=== PATIENT | male | born 1960 | race Caucasian/White ===

== ENCOUNTER → 2017-04-28 | Day surgery (SDC) | payer MEDICAID ==
[~2017-04-28] MED LIST: Glucagon,Human Recombinant 1 MG Vial IV ONE; LORazepam 2 MG/ML MDV IVPUSH ONE; Midazolam 1 MG/ML 2 ML SDV ONE; Propofol 200 MG/20 ML SDV ONE; Sodium Chloride 0.9% 1,000 ML IV SCH; fentaNYL 100 MCG/2 ML SDV ONE
--- NOTE | 2017-04-28 17:44 | EDM.PDOC ---
ED HPI GENERAL MEDICAL PROBLEM - General Chief Complaint: Gastrointestinal Problem Stated Complaint: MEDICAL VIA [facility]TH Time Seen by Provider: 04/28/17 16:17 Source of Information: Reports: Patient History Limitations: Reports: No Limitations - History of Present Illness INITIAL COMMENTS - FREE TEXT/NARRATIVE: History of present illness: [56-year-old male is presenting complaining of esophageal foreign body. He was eating a chicken shish kebab skewer and is now thinking that he got a piece of chicken or wood door toothpick stuck in his upper esophagus. He comes in complaining of pain difficulty swallowing anytime he tries to swallow water it comes right back up. This occurred about an hour prior to presentation] Review of systems: As per history of present illness and below otherwise all systems reviewed and negative. Past medical history: As per history of present illness and as reviewed below otherwise noncontributory. Surgical history: As per history of present illness and as reviewed below otherwise noncontributory. Social history: No reported history of drug or alcohol abuse. Family history: As per history of present illness and as reviewed below otherwise noncontributory. Physical exam: HEENT: Atraumatic, normocephalic, pupils reactive, negative for conjunctival pallor or scleral icterus, mucous membranes moist, throat clear, neck supple, nontender, trachea midline. Oral examination is not revealing any foreign body using a tongue blade and gagging the patient I wasn't able to see any evidence of a foreign body. Lungs: Clear to auscultation Heart: S1S2, regular, negative for clicks, rubs, or JVD. Abdomen: Soft, nondistended, nontender. Negative for masses or hepatosplenomegaly. Negative for costovertebral tenderness. Extremities: Atraumatic, negative for cords or calf pain. Neurovascular unremarkable. Neuro: Awake, alert, oriented. Exam nonfocal. Diagnostics: [] Therapeutics: [Patient received IV fluids IV glucagon and IV Ativan and although he felt better he still felt a foreign body was present] Impression: [Esophageal foreign body sensation] Plan: [Surgeon avionics mechanic is coming in to see him and more than likely was taken to the endoscopy suite] Definitive disposition and diagnosis as appropriate pending reevaluation and review of above. - Related Data Allergies Allergy/AdvReac Type Severity Reaction Status Date / Time No Known Allergies Allergy Verified 04/28/17 16:10 Home Meds: Home Meds atorvaSTATin [Lipitor] 1 tab PO BEDTIME 04/28/17 [History] Past Medical History Cardiovascular History: Reports: High Cholesterol Musculoskeletal History: Reports: Fracture Neurological History: Reports: Seizure - Past Surgical History Musculoskeletal Surgical History: Reports: Other (See Below) Other Musculoskeletal Surgeries/Procedures:: ankle surgery Social & Family History - Tobacco Use Smoking Status *Q: Never Smoker - Alcohol Use Days Per Week of Alcohol Use: 4 Number of Drinks Per Day: 3 Total Drinks Per Week: 12 - Recreational Drug Use Recreational Drug Use: No ED ROS GENERAL - Review of Systems Review Of Systems: ROS reveals no pertinent complaints other than HPI. ED EXAM, GI/ABD - Physical Exam Exam: See Below Course - Vital Signs Last Recorded V/S: Last Vital Signs Temp 37.6 C 04/28/17 16:09 Pulse 109 H 04/28/17 16:09 Resp 22 H 04/28/17 16:09 BP 123/82 04/28/17 16:09 Pulse Ox 99 04/28/17 16:09 - Orders/Labs/Meds Orders: Active Orders 24 hr Category Date Time Status Sodium Chloride 0.9% [Normal Saline] 1,000 ml Med 04/28/17 16:30 Active IV ASDIRECTED Medication Orders Sodium Chloride (Normal Saline) 1,000 mls @ 150 mls/hr IV ASDIRECTED TANVIR Last Admin: 04/28/17 16:49 Dose: 150 mls/hr Meds: Medications Generic Name Dose Route Start Last Admin Trade Name Freq PRN Reason Stop Dose Admin Sodium Chloride 1,000 mls @ 150 mls/hr 04/28/17 16:30 04/28/17 16:49 Normal Saline IV 150 mls/hr ASDIRECTED TANVIR Administration Discontinued Medications Generic Name Dose Route Start Last Admin Trade Name Freq PRN Reason Stop Dose Admin Glucagon 1 mg 04/28/17 16:24 04/28/17 16:47 Glucagen IV 04/28/17 16:25 1 mg ONETIME ONE Administration Lorazepam 1 mg 04/28/17 16:22 04/28/17 16:49 Ativan IVPUSH 04/28/17 16:23 1 mg ONETIME ONE Administration Departure - Departure Time of Disposition: 17:43 Disposition: Refer to Observation Condition: good Clinical Impression: Esophageal foreign body Qualifiers: Encounter type: initial encounter Qualified Code(s): T18.108A - Unspecified foreign body in esophagus causing other injury, initial encounter - Discharge Information Forms: ED Department Discharge - My Orders Last 24 Hours: My Active Orders 04/28/17 16:30 Sodium Chloride 0.9% [Normal Saline] 1,000 ml IV ASDIRECTED - Assessment/Plan Last 24 Hours: My Active Orders 04/28/17 16:30 Sodium Chloride 0.9% [Normal Saline] 1,000 ml IV ASDIRECTED
[2017-04-28 19:37] VITALS: BP 150/95
--- NOTE | 2017-04-28 23:43 | CONS ---
DATE OF SERVICE: 04/28/2017 REFERRING PHYSICIAN: CONSULTING PHYSICIAN: Mikel Thomas MD REASON FOR CONSULTATION: Dysphagia. HISTORY OF PRESENT ILLNESS: A 56-year-old male who has had a recurrent dysphagia issue. He had this previously, but has not had an EGD. This began approximately 4 hours ago and has pain in his epigastric region. PAST SURGICAL HISTORY: Left ankle surgery. PAST MEDICAL HISTORY: None. SOCIAL HISTORY: He does not smoke. He milks cows. REVIEW OF SYSTEMS: GENERAL: The patient is appropriate for his condition. He is not in distress. HEENT: No symptoms. CARDIOVASCULAR: No history of myocardial infarction. RESPIRATORY: No shortness of breath or history of asthma. GASTROINTESTINAL: As above. GENITOURINARY: No dysuria. NEUROLOGICAL: No symptoms. The remainder of review of systems reviewed and is negative. PHYSICAL EXAMINATION: GENERAL: The patient is appropriate for his condition. HEENT: Pupils are equal. NECK: Supple. LUNGS: Clear. ABDOMEN: No pain with palpation. EXTREMITIES: Full range of motion. Strength 5/5. NEUROLOGICAL: Oriented x3. PSYCH: No gross depression. ASSESSMENT: Dysphagia. PLAN: The patient will be taken to the operating room emergently for removal of foreign body. We discussed risks, benefits, alternatives, limitations including, but not limited to infection, bleeding, and perforation. The patient understands these risks and wished to proceed. Mikel Thomas MD /[id number]
--- NOTE | 2017-04-30 07:50 | OR ---
DATE OF PROCEDURE: 04/28/2017 PROCEDURE: Esophagogastroduodenoscopy. FINDINGS: 1. Foreign food material in the distal esophagus. 2. Duodenal ulcer, mild. 3. Gastritis, mild. PATHOLOGY: Gastric antrum biopsies for gastritis. COMPLICATIONS: None. MAINTENANCE ELECTRICIAN: None. RISKS: Risks, benefits, alternatives, limitations including, but not limited to infection, bleeding, and perforation were explained to the patient, and they wished to proceed. PROCEDURE IN DETAIL: The patient was placed in the left lateral decubitus position. The EGD scope was introduced and advanced through the distal esophagus. Foreign food material was noted in the distal esophagus and this was able to be gently advanced into the stomach. Of note, no blind advancement was ever performed. The scope was then advanced through the stomach and the duodenum. In the 1st part of the duodenum, slightly distal to the bulb, the patient had an ulceration, was not actively bleeding and appeared to be healing. The scope was brought back and retroflexed. No hiatal hernia. The patient had gastritis, which is described as [id number]. No active bleeding. The GE junction was normal but was erythematous consistent with foreign material. The patient tolerated that procedure well. Mikel Thomas MD /[id number]
--- NOTE | 2017-04-30 10:31 | CR ---
Chest 2V HISTORY: No Clinical Info FINDINGS: Heart size within normal limits. Pulmonary vasculature within normal limits. No evidence f or focal consolidation or cardiopulmonary process. No radiopaque foreign body about the expected loc ation of the esophagus. IMPRESSION: No radiographic evidence for acute cardiopulmonary process.
== END ==
LOC: JP.ED 15:56 → JP.SDS 18:08
PROVIDERS: ATTEND Surgery
DX: T18.128A Food in esophagus causing other injury, initial encounter (principal); K29.50 Unspecified chronic gastritis without bleeding; K31.9 Disease of stomach and duodenum, unspecified; Z98.890 Other specified postprocedural states; Z79.899 Other long term (current) drug therapy
CPT/HCPCS: 36415; 43239; 43247; 71020; 80048; 85025; 93005; 96361; 96374; 96375; 99285; J1610; J2060; J2250; J2704; J3010; J7040; 88305

== ENCOUNTER 2018-07-19 12:46 | Emergency (ER) | payer MEDICAID ==
[2018-07-19 13:02] VITALS: BP 145/80
[2018-07-19] MEDS ORDERED: Clindamycin Phosphate 900 MG/6 ML SDV IM ONE (13:20)
[2018-07-19] MEDS ORDERED: metroNIDAZOLE 250 MG Tab PO ONE (13:21)
--- NOTE | 2018-07-19 13:31 | EDM.PDOC ---
ED HPI GENERAL MEDICAL PROBLEM - General Chief Complaint: ENT Problem Stated Complaint: ABCESSED TOOTH, VERY SWOLLEN Time Seen by Provider: 07/19/18 12:50 Source of Information: Reports: Patient, RN Notes Reviewed History Limitations: Reports: No Limitations - History of Present Illness INITIAL COMMENTS - FREE TEXT/NARRATIVE: Bairon presents today for complaints of left lower jaw pain and swelling for 2 to 3 days. He reports it is hard to open his mouth and to eat. He denies fever , chills, nausea, vomiting or other concerns. - Related Data Allergies Allergy/AdvReac Type Severity Reaction Status Date / Time No Known Allergies Allergy Verified 04/28/17 16:10 Home Meds: Home Meds atorvaSTATin [Lipitor] 1 tab PO BEDTIME 04/28/17 [History] Past Medical History HEENT History: Reports: Impaired Vision Cardiovascular History: Reports: High Cholesterol Musculoskeletal History: Reports: Fracture Neurological History: Reports: Seizure - Infectious Disease History Infectious Disease History: Reports: Chicken Pox - Past Surgical History Musculoskeletal Surgical History: Reports: Other (See Below) Other Musculoskeletal Surgeries/Procedures:: ankle surgery Social & Family History - Tobacco Use Smoking Status *Q: Former Smoker Used Tobacco, but Quit: Yes Month/Year Tobacco Last Used: many years ago - Caffeine Use Caffeine Use: Reports: None - Recreational Drug Use Recreational Drug Use: No ED ROS ENT - Review of Systems Review Of Systems: See Below Constitutional: Denies: Fever, Chills, Malaise, Weakness HEENT: Reports: Dental Pain, Other (Facial edema to left face). Denies: Ear Pain, Eye Discharge, Throat Pain, Throat Swelling Respiratory: Reports: No Symptoms Cardiovascular: Reports: No Symptoms Endocrine: Reports: No Symptoms GI/Abdominal: Denies: Nausea, Vomiting Musculoskeletal: Reports: No Symptoms Skin: Reports: Other (Edema to left face). Denies: Erythema, Wound Neurological: Reports: No Symptoms Psychiatric: Reports: No Symptoms Hematologic/Lymphatic: Reports: No Symptoms Immunologic: Reports: No Symptoms ED EXAM, ENT - Physical Exam Exam: See Below Text/Narrative:: Bairon presents today for complaints of dental pain, edema to left lower face/ jaw. HE denies fever, chills, nausea, vomiting or other concerns. Exam Limited By: No Limitations General Appearance: Alert, WD/WN, Mild Distress Eye Exam: Bilateral Eye: EOMI, Normal Inspection, PERRL Ears: Normal External Exam, Normal Canal, Hearing Grossly Normal, Normal TMs Nose: Normal Inspection, Normal Mucousa, No Blood Mouth/Throat: Normal Lips, Dental Abcess, Dental Tenderness, Gum Swelling, Other (edema to left lower gum, left cheek. No erythema. Extensive dental caries, many missing teeth, many fractured teeth. Edema and tenderness to #23 -# 19 teeth. ). No: Lip Swelling, Muffled Voice, Oral Ulcers, Tongue Swelling, Tonsillar Erythema, Tonsillar Exudates, Tonsillar Swelling, Uvular Deviation, Uvular Edema Head: Atraumatic, Normocephalic Neck: Normal Inspection, Supple, Non-Tender, Full Range of Motion, Lymphadenopathy (L). No: Lymphadenopathy (R) Respiratory/Chest: No Respiratory Distress, Lungs Clear, Normal Breath Sounds, No Accessory Muscle Use, Chest Non-Tender Cardiovascular: Normal Peripheral Pulses, Regular Rate, Rhythm, No Murmur, No Rub Back: Normal Inspection, Full Range of Motion. No: CVA Tenderness (R), CVA Tenderness (L) Extremities: Normal Inspection, Normal Range of Motion, Non-Tender, No Pedal Edema, Normal Capillary Refill Neurological: Alert, Oriented, CN II-XII Intact, Normal Cognition, Normal Gait, Normal Reflexes, No Motor/Sensory Deficits Psychiatric: Normal Affect, Normal Mood Skin: Dry, Increased Warmth, Other (increased warmth over left cheek. ). No: Erythema Lymphatic: No Adenopathy Course - Vital Signs Last Recorded V/S: Last Vital Signs Temp 36.8 C 07/19/18 13:03 Pulse 86 07/19/18 13:03 Resp 16 07/19/18 13:03 BP 145/80 H 07/19/18 13:03 Pulse Ox 97 07/19/18 13:03 - Orders/Labs/Meds Meds: Medications Discontinued Medications Generic Name Dose Route Start Last Admin Trade Name Freq PRN Reason Stop Dose Admin Clindamycin Phosphate 900 mg 07/19/18 13:20 07/19/18 13:45 Cleocin IM 07/19/18 13:21 900 mg ONETIME ONE Administration Metronidazole 500 mg 07/19/18 13:21 07/19/18 13:28 Metronidazole PO 07/19/18 13:22 500 mg ONETIME ONE Administration Departure - Departure Time of Disposition: 13:32 Disposition: Home, Self-Care 01 Condition: Good Clinical Impression: Dental abscess - Discharge Information *PRESCRIPTION DRUG MONITORING PROGRAM REVIEWED*: No *COPY OF PRESCRIPTION DRUG MONITORING REPORT IN PATIENT THEO: No Instructions: Dental Abscess, [id number] Referrals: PCP,None [Primary Care Provider] - Forms: ED Department Discharge Additional Instructions: You have been evaluated and treated for left lower dental abscess. You were given clindamycin 900mg IM and metronidazole 500mg PO in the emergency room which are both antibiotics. You will continue clindamycin 300mg by mouth four times a day for 10 days and metronidazole 500mg by mouth three times a day for 7 days for infection. You can take ibuprofen and acetaminophen as needed for pain. Follow up with your dentist as soon as possible for dental extractions/dental care. Return to the emergency department for worsening, fever, chills, increased difficulty or concerns. You were offered a dental referral to [facility] and declined. If you change your mind, let us know. - Assessment/Plan Assessment:: Dental abscess Plan: Patient evaluated and treated for left lower dental abscess. He was given clindamycin 900mg IM and metronidazole 500mg PO in the emergency room which are both antibiotics. He will continue clindamycin 300mg by mouth four times a day for 10 days and metronidazole 500mg by mouth three times a day for 7 days for infection. He can take ibuprofen and acetaminophen as needed for pain. Follow up with dentist as soon as possible for dental extractions/dental care. Return to the emergency department for worsening, fever, chills, increased difficulty or concerns. He was offered a dental referral to [facility] and declined. If he change your mind, let us know.
== END 2018-07-19 13:50 | disposition home or self-care (01) ==
LOC: JP.ED 12:46
DX: K04.7 Periapical abscess without sinus (principal); K02.9 Dental caries, unspecified; E78.00 Pure hypercholesterolemia, unspecified; Z87.891 Personal history of nicotine dependence
CPT/HCPCS: 96372; 99283; A9270; J3490

== ENCOUNTER 2020-02-27 11:02 | Emergency (ER) | payer MEDICAID, OTHER ==
[2020-02-27 11:11] VITALS: BP 120/81; PULSE 60
--- NOTE | 2020-02-27 11:39 | EDM.PDOC ---
ED HPI GENERAL MEDICAL PROBLEM - General Chief Complaint: Respiratory Problem Stated Complaint: COUGH, SOB Time Seen by Provider: 02/27/20 11:20 Source of Information: Reports: Patient History Limitations: Reports: No Limitations - History of Present Illness INITIAL COMMENTS - FREE TEXT/NARRATIVE: 59-year-old male with bronchitis-like syndrome for the past week, he called the clinic several days ago and was started on Zithromax and albuterol inhaler. He has 1 dose of Zithromax left but last night his thought he was real "raspy " and threatened to call the ambulance this morning so he came in to be checked. He has intermittent fevers. He was a smoker until 2 years ago. Cough is productive of a small amount of sputum. He actually feels better now than before he decided to come in. No recent travel, did not get the flu vaccine this last season. Onset: Gradual Duration: Day(s): (Symptoms over the past 7 to 9 days) Associated Symptoms: Reports: Fever/Chills, Headaches, Other (Generalized body aches) - Related Data Allergies Allergy/AdvReac Type Severity Reaction Status Date / Time No Known Allergies Allergy Verified 02/27/20 11:11 Home Meds: Home Meds atorvaSTATin [Lipitor] 1 tab PO BEDTIME 04/28/17 [History] Albuterol Sulfate [Albuterol Sulfate Hfa] 8.5 gm IH Q4HR PRN 02/27/20 [History] Azithromycin 250 mg PO DAILY 02/27/20 [History] Past Medical History HEENT History: Reports: Impaired Vision Cardiovascular History: Reports: High Cholesterol Musculoskeletal History: Reports: Fracture Neurological History: Reports: CVA, Seizure - Infectious Disease History Infectious Disease History: Reports: Chicken Pox - Past Surgical History Musculoskeletal Surgical History: Reports: Other (See Below) Other Musculoskeletal Surgeries/Procedures:: ankle surgery Social & Family History - Tobacco Use Smoking Status *Q: Former Smoker Years of Tobacco use: 40 Used Tobacco, but Quit: Yes Month/Year Tobacco Last Used: 2 years - Caffeine Use Caffeine Use: Reports: Coffee - Recreational Drug Use Recreational Drug Use: No ED ROS GENERAL - Review of Systems Review Of Systems: See Below Constitutional: Reports: Fever, Chills, Malaise HEENT: Reports: Rhinitis. Denies: Ear Pain, Throat Pain Respiratory: Reports: Shortness of Breath, Wheezing, Cough, Sputum Cardiovascular: Denies: Chest Pain GI/Abdominal: Reports: Diarrhea (Had diarrhea but that is improved). Denies: Nausea, Vomiting : Reports: No Symptoms Musculoskeletal: Reports: Muscle Pain Skin: Denies: Rash ED EXAM, GENERAL - Physical Exam Exam: See Below Free Text/Narrative:: Respiratory rate is normal, O2 sats 94 to 96% on room air and he is afebrile Exam Limited By: No Limitations General Appearance: Alert, No Apparent Distress Head: Atraumatic Respiratory/Chest: No Respiratory Distress, Wheezing (Diffuse expiratory wheezes , especially prominent when coughing) Cardiovascular: Regular Rate, Rhythm Neurological: Alert, Oriented Psychiatric: Normal Affect, Normal Mood Skin Exam: Warm, Dry Course - Vital Signs Last Recorded V/S: Last Vital Signs Temp 98.4 F 02/27/20 11:05 Pulse 60 02/27/20 11:05 Resp 20 02/27/20 11:05 BP 120/81 02/27/20 11:05 Pulse Ox 97 02/27/20 11:05 - Orders/Labs/Meds Orders: Active Orders 24 hr Category Date Time Status Chest 2V [CR] Routine Exams 02/27/20 11:30 Taken Isolation [COMM] Routine Oth 02/27/20 11:30 Ordered - Re-Assessments/Exams Free Text/Narrative Re-Assessment/Exam: 02/27/20 11:38 Influenza antigens were obtained as well as a two-view chest x-ray. 02/27/20 12:00 Chest x-ray is clear and influenza antigen tests are negative. Patient will finish his Zithromax, continue with his albuterol inhaler and stay away from work until he is better, he can return if worsening. Departure - Departure Time of Disposition: 12:02 Disposition: Home, Self-Care 01 Clinical Impression: Viral bronchitis - Discharge Information Instructions: Acute Bronchitis, Adult Referrals: PCP,None [Primary Care Provider] - Forms: ED Department Discharge Care Plan Goals: You need to stay home from work until your cough is improved and you have not had fevers for 3 consecutive days. Return if worsening and you feel you need to be in the hospital. Continue with your albuterol inhaler as needed and finish the Zithromax as prescribed. Sepsis Event Note - Evaluation Sepsis Screening Result: No Definite Risk - Focused Exam Vital Signs: Vital Signs Temp Pulse Resp BP Pulse Ox 02/27/20 11:05 98.4 F 60 20 120/81 97 Date Exam was Performed: 02/27/20 Time Exam was Performed: 14:19 - My Orders Last 24 Hours: My Active Orders 02/27/20 11:30 Chest 2V [CR] Routine Isolation [COMM] Routine - Assessment/Plan Last 24 Hours: My Active Orders 02/27/20 11:30 Chest 2V [CR] Routine Isolation [COMM] Routine
--- NOTE | 2020-02-29 10:12 | CR ---
CHEST: 2 view CLINICAL HISTORY:Dyspnea COMPARISON:2017 FINDINGS: Lungs are mildly hyperaerated. Heart size and pulmonary vascular normal. There are scattered granulomata. No infiltrate or effusion is seen Impression: Mild hyperaeration Previous granulomatous exposure No acute cardiopulmonary process.
== END 2020-02-27 12:08 | disposition home or self-care (01) ==
LOC: JP.ED 11:02
DX: J20.8 Acute bronchitis due to other specified organisms (principal); E78.00 Pure hypercholesterolemia, unspecified; Z86.73 Personal history of transient ischemic attack (TIA), and cerebral infarction without residual deficits; Z87.891 Personal history of nicotine dependence; Z79.899 Other long term (current) drug therapy
CPT/HCPCS: 71046; 71046-26; 87804; 87804-59; 99282; 99283-25

== ENCOUNTER 2020-12-16 11:32 | Emergency (ER) | payer SELFPAY ==
[2020-12-16 11:42] VITALS: BP 116/81; PULSE 88
[2020-12-16] MEDS ORDERED: Sodium Chloride 0.9% 10 ML Syringe FLUSH PRN (12:09)
--- NOTE | 2020-12-16 12:15 | EDM.PDOC ---
ED HPI GENERAL MEDICAL PROBLEM - General Chief Complaint: General Stated Complaint: MEDICAL Time Seen by Provider: 12/16/20 11:55 Source of Information: Reports: Patient, Old Records, RN History Limitations: Reports: Other (poor historian ) - History of Present Illness INITIAL COMMENTS - FREE TEXT/NARRATIVE: 60 yo male presents from his home via EMS for ? weakness, L facial pain, recent L facial swelling. These sx's began yesterday. He has a pHx of a CVA and is still smoking. Works on a dairy farm milking cows. Is and is called EMS today. Sees Maico Bhagat as his primary care provider, but has not seen him or talked to him lately. Is not aware of fever or chest pain. Apparently was SOB at home before his called EMS, but that has resolved. Onset: Gradual Onset Date: 12/15/20 Duration: Day(s): (1), Waxing/Waning Location: Reports: Face, Generalized Quality: Reports: Ache Severity: Mild Improves with: Reports: None Worsens with: Reports: Other (unknown "thinks he may have a sinus infection") Context: Reports: Other (See HPI) Associated Symptoms: Reports: Shortness of Breath (transient), Weakness (ge neralized). 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: Reports: Other (see below) (none) left side face pain and headache Pain Score (Numeric/FACES): 3 - Related Data Allergies Allergy/AdvReac Type Severity Reaction Status Date / Time No Known Allergies Allergy Verified 12/16/20 11:48 Home Meds: Home Meds atorvaSTATin [Lipitor] 1 tab PO BEDTIME 04/28/17 [History] Albuterol Sulfate [Albuterol Sulfate Hfa] 8.5 gm IH Q4HR PRN 02/27/20 [History] Aspirin [Aspirin EC] 325 mg PO DAILY 12/16/20 [History] Past Medical History HEENT History: Reports: Impaired Vision Cardiovascular History: Reports: High Cholesterol Respiratory History: Reports: Asthma, COPD Gastrointestinal History: Reports: None Genitourinary History: Reports: None Musculoskeletal History: Reports: Fracture Neurological History: Reports: Seizure, TIA Psychiatric History: Reports: None Endocrine/Metabolic History: Reports: None Hematologic History: Reports: None Immunologic History: Reports: None Oncologic (Cancer) History: Reports: None Dermatologic History: Reports: None - Infectious Disease History Infectious Disease History: Reports: Chicken Pox - Past Surgical History GI Surgical History: Reports: None Musculoskeletal Surgical History: Reports: Other (See Below) Other Musculoskeletal Surgeries/Procedures:: ankle surgery Social & Family History - Tobacco Use Tobacco Use Status *Q: Former Tobacco User Used Tobacco, but Quit: Yes Month/Year Tobacco Last Used: 10 years - Caffeine Use Caffeine Use: Reports: Coffee - Recreational Drug Use Recreational Drug Use: No ED ROS GENERAL - Review of Systems Review Of Systems: See Below Constitutional: Reports: Malaise, Weakness. Denies: Fever, Chills HEENT: Reports: Sinus Problem (possibly), Other (recent L facial swelling, now L facial pain) Respiratory: Reports: Shortness of Breath (transient, now gone). Denies: Wheezing, Cough, Sputum, Hemoptysis Cardiovascular: Reports: No Symptoms Endocrine: Reports: No Symptoms GI/Abdominal: Reports: No Symptoms : Reports: No Symptoms Musculoskeletal: Reports: No Symptoms Skin: Reports: No Symptoms Neurological: Reports: No Symptoms Psychiatric: Reports: No Symptoms ED EXAM, GENERAL - Physical Exam Exam: See Below Exam Limited By: No Limitations General Appearance: Alert, WD/WN, No Apparent Distress Eye Exam: Bilateral Eye: Normal Inspection Ears: Normal External Exam, Normal Canal, Hearing Grossly Normal, Normal TMs Ear Exam: Bilateral Ear: Auricle Normal, Canal Normal, TM normal Nose: Normal Inspection, No Blood Throat/Mouth: Normal Inspection, Normal Lips, Normal Oropharynx, Normal Voice, N o Airway Compromise. No: Normal Teeth (very poor dentition with only a few teeth remaining. ) Head: Atraumatic, Normocephalic, Facial Tenderness (L upper cheek area). No: Fa cial Swelling Neck: Normal Inspection. No: Lymphadenopathy (R), Lymphadenopathy (L) Respiratory/Chest: No Respiratory Distress, Lungs Clear, Normal Breath Sounds, No Accessory Muscle Use Cardiovascular: Regular Rate, Rhythm, No Edema GI/Abdominal: Normal Bowel Sounds, Soft, Non-Tender, No Distention Back Exam: Normal Inspection. No: CVA Tenderness (R), CVA Tenderness (L) Extremities: Normal Inspection, Normal Range of Motion, Non-Tender, No Pedal Edema. No: Pedal Edema Neurological: Alert, Oriented, CN II-XII Intact, Normal Cognition, No Motor/Sensory Deficits, Other (generalized weakness noted on exam. ) Psychiatric: Normal Affect, Normal Mood Skin Exam: Warm, Dry, Intact, Normal Color, No Rash Course - Vital Signs Last Recorded V/S: Last Vital Signs Temp 37.2 C 12/16/20 11:43 Pulse 88 12/16/20 11:43 Resp 18 12/16/20 11:43 BP 116/81 12/16/20 11:43 Pulse Ox 95 12/16/20 11:43 - Orders/Labs/Meds Orders: Active Orders 24 hr Category Date Time Status Cardiac Monitoring [RC] .As Directed Care 12/16/20 12:09 Active Sodium Chloride 0.9% [Saline Flush] Med 12/16/20 12:09 Active 10 ml FLUSH ASDIRECTED PRN Saline Lock Insert [OM.PC] Routine Oth 12/16/20 12:09 Ordered Medication Orders Sodium Chloride (Saline Flush) 10 ml FLUSH ASDIRECTED PRN PRN Reason: Keep Vein Open Labs: Laboratory Tests 12/16/20 12/16/20 12/16/20 Range/Units 12:09 12:19 12:19 WBC 4.5 (4.5-11.0) K/uL RBC 5.00 (4.30-5.90) M/uL Hgb 15.5 H (12.0-15.0) g/dL Hct 47.6 (40.0-54.0) % MCV 95 (80-98) fL MCH 31 (27-31) pg MCHC 33 (32-36) % Plt Count 156 (150-400) K/uL Sodium 136 L (140-148) mmol/L Potassium 3.8 (3.6-5.2) mmol/L Chloride 100 (100-108) mmol/L Carbon Dioxide 25 (21-32) mmol/L Anion Gap 14.8 H (5.0-14.0) mmol/L BUN 11 (7-18) mg/dL Creatinine 0.7 L (0.8-1.3) mg/dL Est Cr Clr Drug Dosing 111.29 mL/min Estimated GFR (MDRD) > 60 (>60) Glucose 97 (74-106) mg/dL Calcium 8.4 L (8.5-10.1) mg/dL Troponin I (0.000-0.056) ng/mL C-Reactive Protein (0.0-0.3) mg/dL Urine Color Yellow (YELLOW) Urine Appearance Clear (CLEAR) Urine pH 5.5 (5.0-8.0) Ur Specific [place] <= 1.005 L (1.008-1.030) Urine Protein Negative (NEGATIVE) mg/dL Urine Glucose (UA) Negative (NEGATIVE) mg/dL Urine Ketones Negative (NEGATIVE) mg/dL Urine Occult Blood Negative (NEGATIVE) Urine Nitrite Negative (NEGATIVE) Urine Bilirubin Negative (NEGATIVE) Urine Urobilinogen 0.2 (0.2-1.0) EU/dL Ur Leukocyte Esterase Negative (NEGATIVE) Urine RBC Not seen (0-5) Urine WBC Not seen (0-5) Ur Epithelial Cells Not seen Amorphous Sediment Rare Urine Bacteria Not seen Urine Mucus Not seen Ethyl Alcohol mg/dL SARS-CoV-2 RNA (GONZALO) (NEGATIVE) 12/16/20 12/16/20 12/16/20 Range/Units 12:19 12:29 13:05 WBC (4.5-11.0) K/uL RBC (4.30-5.90) M/uL Hgb (12.0-15.0) g/dL Hct (40.0-54.0) % MCV (80-98) fL MCH (27-31) pg MCHC (32-36) % Plt Count (150-400) K/uL Sodium (140-148) mmol/L Potassium (3.6-5.2) mmol/L Chloride (100-108) mmol/L Carbon Dioxide (21-32) mmol/L Anion Gap (5.0-14.0) mmol/L BUN (7-18) mg/dL Creatinine (0.8-1.3) mg/dL Est Cr Clr Drug Dosing mL/min Estimated GFR (MDRD) (>60) Glucose (74-106) mg/dL Calcium (8.5-10.1) mg/dL Troponin I < 0.017 (0.000-0.056) ng/mL C-Reactive Protein 0.28 (0.0-0.3) mg/dL Urine Color (YELLOW) Urine Appearance (CLEAR) Urine pH (5.0-8.0) Ur Specific [place] (1.008-1.030) Urine Protein (NEGATIVE) mg/dL Urine Glucose (UA) (NEGATIVE) mg/dL Urine Ketones (NEGATIVE) mg/dL Urine Occult Blood (NEGATIVE) Urine Nitrite (NEGATIVE) Urine Bilirubin (NEGATIVE) Urine Urobilinogen (0.2-1.0) EU/dL Ur Leukocyte Esterase (NEGATIVE) Urine RBC (0-5) Urine WBC (0-5) Ur Epithelial Cells Amorphous Sediment Urine Bacteria Urine Mucus Ethyl Alcohol 218 mg/dL SARS-CoV-2 RNA (GONZALO) (NEGATIVE) 12/16/20 Range/Units 13:09 WBC (4.5-11.0) K/uL RBC (4.30-5.90) M/uL Hgb (12.0-15.0) g/dL Hct (40.0-54.0) % MCV (80-98) fL MCH (27-31) pg MCHC (32-36) % Plt Count (150-400) K/uL Sodium (140-148) mmol/L Potassium (3.6-5.2) mmol/L Chloride (100-108) mmol/L Carbon Dioxide (21-32) mmol/L Anion Gap (5.0-14.0) mmol/L BUN (7-18) mg/dL Creatinine (0.8-1.3) mg/dL Est Cr Clr Drug Dosing mL/min Estimated GFR (MDRD) (>60) Glucose (74-106) mg/dL Calcium (8.5-10.1) mg/dL Troponin I (0.000-0.056) ng/mL C-Reactive Protein (0.0-0.3) mg/dL Urine Color (YELLOW) Urine Appearance (CLEAR) Urine pH (5.0-8.0) Ur Specific [place] (1.008-1.030) Urine Protein (NEGATIVE) mg/dL Urine Glucose (UA) (NEGATIVE) mg/dL Urine Ketones (NEGATIVE) mg/dL Urine Occult Blood (NEGATIVE) Urine Nitrite (NEGATIVE) Urine Bilirubin (NEGATIVE) Urine Urobilinogen (0.2-1.0) EU/dL Ur Leukocyte Esterase (NEGATIVE) Urine RBC (0-5) Urine WBC (0-5) Ur Epithelial Cells Amorphous Sediment Urine Bacteria Urine Mucus Ethyl Alcohol mg/dL SARS-CoV-2 RNA (GONZALO) Negative (NEGATIVE) Meds: Medications Generic Name Dose Route Start Last Admin Trade Name Freq PRN Reason Stop Dose Admin Sodium Chloride 10 ml 12/16/20 12:09 Saline Flush FLUSH ASDIRECTED PRN Keep Vein Open Discontinued Medications Generic Name Dose Route Start Last Admin Trade Name Mitali PRN Reason Stop Dose Admin Ketorolac Tromethamine 15 mg 12/16/20 13:29 Toradol IVPUSH 12/16/20 13:30 ONETIME ONE - Re-Assessments/Exams Free Text/Narrative Re-Assessment/Exam: 12/16/20 13:32 Called , she was unaware that he had been drinking. Departure - Departure Time of Disposition: 13:35 Disposition: Home, Self-Care 01 Condition: Fair Clinical Impression: Alcohol intoxication Qualifiers: Complication of substance-induced condition: uncomplicated Qualified Code(s): F10.920 - Alcohol use, unspecified with intoxication, uncomplicated - Discharge Information *PRESCRIPTION DRUG MONITORING PROGRAM REVIEWED*: No *COPY OF PRESCRIPTION DRUG MONITORING REPORT IN PATIENT THEO: No Referrals: PCP,None [Primary Care Provider] - Forms: ED Department Discharge Additional Instructions: No driving today. F/U with your provider as needed. No smoking or drinking of alcohol. Sepsis Event Note (ED) - Evaluation Sepsis Screening Result: No Definite Risk - Focused Exam Vital Signs: Vital Signs Temp Pulse Resp BP Pulse Ox 12/16/20 11:43 37.2 C 88 18 116/81 95 12/16/20 11:37 37.2 C 88 18 116/81 95 - My Orders Last 24 Hours: My Active Orders 12/16/20 12:09 Cardiac Monitoring [RC] .As Directed Sodium Chloride 0.9% [Saline Flush] 10 ml FLUSH ASDIRECTED PRN Saline Lock Insert [OM.PC] Routine - Assessment/Plan Last 24 Hours: My Active Orders 12/16/20 12:09 Cardiac Monitoring [RC] .As Directed Sodium Chloride 0.9% [Saline Flush] 10 ml FLUSH ASDIRECTED PRN Saline Lock Insert [OM.PC] Routine
[2020-12-16] MEDS ORDERED: Ketorolac 30 MG/ML SDV IVPUSH ONE (13:29)
== END 2020-12-16 14:08 | disposition home or self-care (01) ==
LOC: JP.ED 11:32
DX: F10.120 Alcohol abuse with intoxication, uncomplicated (principal); E78.00 Pure hypercholesterolemia, unspecified; J44.9 Chronic obstructive pulmonary disease, unspecified; Z86.73 Personal history of transient ischemic attack (TIA), and cerebral infarction without residual deficits; Z79.82 Long term (current) use of aspirin; Z79.899 Other long term (current) drug therapy; Z20.822 Contact with and (suspected) exposure to COVID-19; Z87.891 Personal history of nicotine dependence; Y90.7 Blood alcohol level of 200-239 mg/100 ml
CPT/HCPCS: 36415; 80048; 80307; 81001; 84484; 85027; 86140; 87635; 96374; 99284; J1885; 99283; U0002

== ENCOUNTER 2021-06-12 08:13 | Day surgery (SDC) | payer BC ==
[2021-06-12] MEDS ORDERED: Sodium Chloride 0.9% 1,000 ML IV SCH (08:45)
[2021-06-12] MEDS ORDERED: fentaNYL 100 MCG/2 ML SDV ONE (08:49)
[2021-06-12] MEDS ORDERED: Propofol 200 MG/20 ML SDV ONE (08:49)
[2021-06-12] MEDS ORDERED: Midazolam 1 MG/ML 2 ML SDV ONE (08:49)
[2021-06-12 11:30] VITALS: BP 114/82; PULSE 83
--- NOTE | 2021-06-12 13:04 | OR ---
DATE OF PROCEDURE: 06/12/2021 SURGEON: Mikel Thomas MD PROCEDURE: Colonoscopy. FINDINGS: Normal colonoscopy. COMPLICATIONS: None. MAILROOM ASSOCIATE: None. ANESTHESIA: MAC. PREOPERATIVE DIAGNOSIS: Positive Cologuard. POSTOPERATIVE DIAGNOSIS: Positive Cologuard. RISKS: Risks, benefits, alternatives, and limitations including but not limited to infection, bleeding, perforation, false positives, and false negatives were explained to the patient who wished to proceed. PROCEDURE IN DETAIL: The patient was placed in left lateral decubitus position. Digital rectal exam was performed without abnormality. Scope was introduced and advanced atraumatically to the appendiceal orifice. Photo was taken of this. The ileum did not show any gross abnormalities in its distal aspect. Scope was brought back to the ascending, transverse, descending colon, and retroflexed. No evidence of old or new blood. No masses. No polyps. No diverticulosis. No pathology noted. No abnormalities on retroflexion. Greater than 11 minutes was spent removing the scope. The prep was acceptable, approximately 90% of the luminal surface could be seen. Some solid and liquid stool remaining. The patient tolerated the procedure well. Mikel Thomas MD /[id number]
== END 2021-06-12 11:31 | disposition home or self-care (01) ==
LOC: JP.SDS 08:13
PROVIDERS: ATTEND Surgery
DX: R19.5 Other fecal abnormalities (principal)
CPT/HCPCS: 45378; J2250; J2704; J3010; J7030